=== PATIENT | male | born 1980 | race Caucasian/White ===

== ENCOUNTER → 2022-03-30 | Outpatient (CLI) | payer BC ==
[~2022-03-30] MED LIST: FISH OIL1 IU PO; GLUCOPHAGE PO; GOOD SENSE ASPI81 M1 PO; LEVEMIR FLEX100 U/ML SQ; ROXICODONE 55 MG/TAB PO; VITAMIN D31250 MCG PO; [UNRECOGNIZED DRUG - OTHER] MC
[2022-03-30 17:10] LABS: HEMATOCRIT 36.8 % (42.0-52.0); HEMOGLOBIN 11.8 g/dL (13.5-18.0); MEAN PLATELET VOLUME 10.3 fl (7.4-10.4); RED BLOOD COUNT 4.13 M/mm3 (4.20-5.60); RED CELL DISTRIBUTION WIDTH 14.2 % (11.5-14.5); WHITE BLOOD COUNT 6.3 K/mm3 (4.8-10.8)
[2022-03-30 17:16] LABS: ALBUMIN 4.1 g/dL (3.5-5.0); POTASSIUM 3.9 mmol/L (3.5-5.1)
[2022-03-30 17:17] LABS: CALCIUM 9.5 mg/dL (8.3-10.5)
[2022-03-30 17:18] LABS: TOTAL PROTEIN 7.7 g/dL (6.4-8.3)
[2022-03-30 17:20] LABS: TOTAL BILIRUBIN 0.4 mg/dL (0.2-1.2)
== END ==
LOC: LAB 15:49
PROVIDERS: Physician Assistant
DX: Z98.890 Other specified postprocedural states (principal)

== ENCOUNTER 2022-04-05 15:27 | Outpatient (RCR) | payer BC ==
[2022-03-26 16:15] VITALS: BP 147/105
--- NOTE | 2022-03-26 18:14 | NUR ---
WOUND MEASUREMENTS [id number]
[2022-03-27 16:07] VITALS: BP 140/77
[2022-03-28 16:33] VITALS: BP 138/83
[2022-03-29 16:48] VITALS: BP 138/75
[2022-03-30 16:10] VITALS: BP 137/76
[2022-03-31 17:09] VITALS: BP 116/76
[2022-04-01 16:18] VITALS: BP 119/71
[2022-04-02 17:30] VITALS: BP 124/76
[2022-04-03 16:09] VITALS: BP 122/77
[2022-04-04 16:04] VITALS: BP 133/73
[~2022-04-05] VITALS: Ht 188 cm; Wt 152.7 kg
--- NOTE | 2022-04-05 09:37 | NUR ---
Confirmed with [facility]. Martell has an appointment with Carlene Hill APRN and supervisising physician Dr. Tavo Jaems DO on April 07 and regularly scheduled appointments for continued care on Tuesday, Tue, and Tuesday. Confirmed with Aracely at [facility] starting April 06 at 8:00 am and contiue daily antibiotic therapy with the [facility]. Aracely states that Martell should arrive on the North side of the building with Admissions to register. The express unit will need an updated medication list.
[2022-04-05 17:48] VITALS: BP 122/91
== END 2022-04-25 | disposition home or self-care (01) ==
LOC: AMSURD
DX: M86.8X7 Other osteomyelitis, ankle and foot (principal); Z98.890 Other specified postprocedural states
CPT/HCPCS: J0878; J1335

== ENCOUNTER → 2022-04-05 | Outpatient (CLI) | payer BC ==
[2022-04-05 15:55] LABS: HEMATOCRIT 38.4 % (42.0-52.0); HEMOGLOBIN 12.4 g/dL (13.5-18.0); MEAN PLATELET VOLUME 9.8 fl (7.4-10.4); RED BLOOD COUNT 4.31 M/mm3 (4.20-5.60); RED CELL DISTRIBUTION WIDTH 13.9 % (11.5-14.5); WHITE BLOOD COUNT 7.8 K/mm3 (4.8-10.8)
[2022-04-05 16:06] LABS: ALBUMIN 4.2 g/dL (3.5-5.0); POTASSIUM 4.4 mmol/L (3.5-5.1)
[2022-04-05 16:07] LABS: CALCIUM 10.2 mg/dL (8.3-10.5)
[2022-04-05 16:09] LABS: TOTAL PROTEIN 7.9 g/dL (6.4-8.3)
[2022-04-05 16:11] LABS: TOTAL BILIRUBIN 0.4 mg/dL (0.2-1.2)
== END ==
LOC: LAB 15:31
PROVIDERS: Student in an Organized Health Care Education/Training Program
DX: M86.8X7 Other osteomyelitis, ankle and foot (principal); Z98.890 Other specified postprocedural states